=== PATIENT | female | born 1965 | race Caucasian/White ===

== ENCOUNTER 2023-05-15 09:40 | Emergency (ER) | payer OTHER, SELFPAY ==
[2023-05-15 09:52] VITALS: BP 176/84; PULSE 74; RESP 18; TEMP 36.8; O2SAT 96; BMI 37.4
--- NOTE | 2023-05-15 10:18 | US_ITS ---
The [address] [address] Patient Name: BEVERLEY HINOJOSA MRN: [id number] date: 1965 Sex: F Assigned Patient Location: ER Current Patient Location: ED.MAIN Accession/Order Number: [id number] Exam Date: 05/15/2023 10:29 Report Date: 05/15/2023 11:22 At the request of: NEL NERI Procedure: US venous doppler LE RT ULTRASOUND OF RIGHT LOWER EXTREMITY VENOUS SYSTEMS WITH DUPLEX, 05/15/2023 10:29 AM EST INDICATION: Edema, pain COMPARISON: No prior right lower extremity ultrasound available for comparison at the time of this dictation TECHNIQUE: Multi-planar real-time ultrasonography of the right lower extremity venous systems using grayscale imaging supplemented by color Doppler. Augmentation and compression maneuvers were utilized as needed. FINDINGS: The saphenofemoral junction, common femoral, profunda femoral, superficial femoral and popliteal veins are fully compressible with anterograde flow. Respiratory variation and waveform response to augmentation within normal limits. Visualized portions of the greater saphenous and smaller saphenous veins are fully compressible. The anterior tibial, posterior tibial and peroneal veins are fully compressible. US/US venous doppler LE RT IMPRESSION: Negative for deep venous thrombosis within the right lower extremity Electronically authenticated by: LALITO FERREIRA Date: 05/15/2023 11:22
[2023-05-15 11:17] VITALS: BP 163/71; PULSE 89; RESP 18; O2SAT 99
--- NOTE | 2023-05-15 12:44 | ED_ITS ---
HPI - Extremity Injury (Lower) General Chief Complaint: Extremity Injury, Lower Stated Complaint: LOWER EXTREMITY PAIN R LEG Time Seen by Provider: 05/15/23 09:58 Source: patient Mode of arrival: walk-in Limitations: no limitations History of Present Illness HPI Narrative: The patient presented to us with a right calf pain that started after she recently had a contusion to the anterior of her right leg. The patient mentioned that she still have localized tenderness there but today she started having tenderness in the back of her calf. No fever no chills no other complaints no numbness or tingling her toes Related Data Previous Rx's Medication Instructions Recorded ibuprofen 600 mg tablet 600 mg PO TID #6 tabs 05/15/23 Allergies Allergy/AdvReac Type Severity Reaction Status Date / Time No Known Drug Allergies Allergy Verified 05/15/23 09:51 Review of Systems ROS Status of ROS 10 or more systems reviewed and unremark able except as noted in history and below PFSH PFSH Social History Smoking status: Never smoker Exam Narrative Exam Narrative: Nurses notes and vital signs reviewed and patient is not hypoxic. General: Well-appearing and in no apparent distress. Skin: Warm, dry, no pallor noted. No rash. Head: Normocephalic, atraumatic. Neck: Supple, non-tender. Eye: Pupils are equal, round and EOMI. No scleral icterus. Ears, Nose, Mouth, and Throat: TM are clear, no nasal mucosal hypertrophy. Oral mucosa is moist, no posterior oropharynx erythema, uvula is mid-line Cardiovascular: Regular Rate and Rhythm without murmur, gallop or rub. Respiratory: No accessory muscle use or respiratory distress. Lungs are clear to auscultation, no wheezing, rales or rhonchi Chest Wall: no tenderness Back: No midline thoracic or lumbar vertebral tenderness. No CVA tenderness Musculoskeletal: normal ROM, no calf or popliteal tenderness, there is mild tenderness upon palpation of the calf on the right area no significant swelling no ecchymosis the patient also have a small contusion that is healing just below the right tibial tuberosity, GI: Abdomen is soft, non-distended. Normal bowel sounds. No masses appreciated. No tenderness to palpation. No rebound, guarding, or rigidity noted. Neurological: A&O x4. No cranial nerve dysfunction observed. No truncal ataxia. Moves all extremities. Sensation intact. Psychiatric: Cooperative and interactive. Normal mood and affect. Constitutional Vital Signs, click to edit/add: Last Vital Signs Temp 98.2 F 05/15/23 09:52 Pulse 89 05/15/23 11:17 Resp 18 05/15/23 11:17 BP 163/71 H 05/15/23 11:17 Pulse Ox 99 05/15/23 11:17 O2 Del Method Room Air 05/15/23 09:52 Course Vital Signs Vital signs: Vital Signs Temperature 98.2 F 05/15/23 09:52 Pulse Rate 74 05/15/23 09:52 Respiratory Rate 18 05/15/23 09:52 Blood Pressure 176/84 H 05/15/23 09:52 Pulse Oximetry 96 05/15/23 09:52 Oxygen Delivery Method Room Air 05/15/23 09:52 Temperature 98.2 F 05/15/23 09:52 Pulse Rate 89 05/15/23 11:17 Respiratory Rate 18 05/15/23 11:17 Blood Pressure 163/71 H 05/15/23 11:17 Pulse Oximetry 99 05/15/23 11:17 Oxygen Delivery Method Room Air 05/15/23 09:52 MDM - Extremity Injury (Lower) MDM Narrative Medical decision making narrative: No signs of infection or new trauma the patient duplex shows no DVT Supportive care with Frank wrap as well as ibuprofen course for 3 days The patient is to follow up with primary care physician in next 2-3 days or to return to the emergency department should any of the signs or symptoms worsen or new symptoms develop. The patient agrees with the following Diagnosis and Treat ment plan and the patient will be discharged home. Discharge Plan Discharge Chief Complaint: Extremity Injury, Lower Clinical Impression: Calf pain Qualifiers: Laterality: right Qualified Code(s): M79.661 - Pain in right lower leg Patient Disposition: Home, Self-Care Time of Disposition Decision: 11:57 Condition: Good Prescriptions / Home Meds: New ibuprofen 600 mg tablet 600 mg PO TID Qty: 6 0RF Instructions: Leg Pain (ED) Stand Alone Forms: Portal Instructions Referrals: Physician,Non-Staff, MD [Primary Care Provider] - 1 week Discharge Date/Time: 05/15/23 12:12
== END 2023-05-15 12:12 | disposition home or self-care (01) ==
PROVIDERS: Emergency Provider Emergency Medicine; Family Provider Family Medicine
DX: M79.661 Pain in right lower leg (principal)
CPT/HCPCS: 93971; 99284